=== PATIENT | female | born 1950 | race Caucasian/White ===

== ENCOUNTER → 2018-07-26 | Outpatient (CLI) | payer MEDICARE, BC | LOC: MAMMO 09:56 | DX: Z12.31 Encounter for screening mammogram for malignant neoplasm of breast (principal) ==

== ENCOUNTER → 2021-12-29 | Outpatient (CLI) | payer MEDICARE, BC | LOC: MAMMO 08:30 | DX: Z12.31 Encounter for screening mammogram for malignant neoplasm of breast (principal) ==

== ENCOUNTER 2024-08-31 21:14 | Emergency (ER) | payer MEDICARE, BC ==
[~2024-08-31] VITALS: Ht 152.4 cm; Wt 104.5 kg
[2024-08-31 21:15] VITALS: BP 134/85
== END 2024-08-31 21:43 | disposition home or self-care (01) ==
LOC: ED 21:14
DX: I83.891 Varicose veins of right lower extremity with other complications (principal); Z79.82 Long term (current) use of aspirin